=== PATIENT | female | born 2000 | race African-American/Black ===

== ENCOUNTER 2024-08-11 15:50 | Emergency (ER) | payer OTHER ==
[~2024-08-11] VITALS: Ht 170.2 cm; Wt 73.0 kg
[2024-08-11 16:04] VITALS: O2SAT 100
[2024-08-11 17:50] VITALS: BP 130/66; PULSE 80; RESP 16; TEMP 36.83628; O2SAT 100
== END 2024-08-11 17:50 | disposition home or self-care (01) ==
LOC: ER 15:50
DX: M79.661 Pain in right lower leg (principal)
CPT/HCPCS: 99281